=== PATIENT | male | born 1985 | race Native Hawaiian/Other Pacific Islander ===

== ENCOUNTER 2018-04-21 08:22 | Emergency (ER) | payer OTHER ==
[~2018-04-21] VITALS: Ht 180.3 cm; Wt 108.9 kg
[2018-04-21 08:25] VITALS: TEMP 98.4
[2018-04-21 09:03] LABS: PLATELET COUNT 299 K/uL (142-355)
[2018-04-21 09:08] LABS: POTASSIUM 3.7 mmol/L (3.6-5.2)
[2018-04-21 09:53] VITALS: BP 142/82
== END 2018-04-21 09:53 | disposition home or self-care (01) ==
LOC: ED 08:22
DX: N20.0 Calculus of kidney (principal)
CPT/HCPCS: 36415; 80053; 81000; 85027; 96374; 99284; J1885